=== PATIENT | male | born 1975 | race Hispanic/Latino ===

== ENCOUNTER 2016-10-26 11:47 | Emergency (ER) | payer OTHER ==
[2016-10-26 11:55] VITALS: BP 153/85; PULSE 73; RESP 18; TEMP 97.4; O2SAT 100
--- NOTE | 2016-10-26 12:19 | ED PDOC ---
HPI: Back Time Seen by Provider: 10/26/16 12:16 Chief Complaint (Nursing): Back Pain Chief Complaint (Provider): low back pain History Per: Patient History/Exam Limitations: no limitations Onset/Duration Of Symptoms: Days (3) Current Symptoms Are (Timing): Still Present Quality Of Discomfort: Pressure, "Pain" Previous Symptoms: None Associated Symptoms: None Additional Complaint(s): The patient is a 41 y/o male, presents to the ED for evaluation of left lower back pain, worsening for the past 3 days. The patient reports 5 days ago, when he sneezed, he felt his back get "tight"; reports he took 2 tablets of Advil with relief. The patient then states 3 days ago, his back pain worsened and describes it as pressure-like with numbness present in his left lower extremity. He reports taking 2 Advil this morning at 0700 with no relief. Patient denies any history of back pain, surgeries. He also denies any dysuria, incontinence, hematuria. Patient currently offers no additional medical complaints. Past Medical History Reviewed: Historical Data, Nursing Documentation, Vital Signs Vital Signs: Last Vital Signs Temp 97.4 F L 10/26/16 11:54 Pulse 73 10/26/16 11:54 Resp 18 10/26/16 11:54 BP 153/85 H 10/26/16 11:54 Pulse Ox 100 10/26/16 11:54 - Medical History PMH: No Chronic Diseases - Surgical History Surgical History: No Surg Hx - Family History Family History: States: No Known Family Hx - Living Arrangements Living Arrangements: With Family - Social History Current smoker - smoking cessation education provided: No Alcohol: None Drugs: Denies - Home Medications Home Medications: Ambulatory Orders Medication Instructions Recorded Cyclobenzaprine [Cyclobenzaprine 10 mg PO TID PRN #20 tab 10/26/16 HCl] Naproxen [Naprosyn] 500 mg PO BID #20 tab 10/26/16 - Allergies Allergies/Adverse Reactions: Allergies Allergy/AdvReac Type Severity Reaction Status Date / Time Penicillins AdvReac ANAPHYLAXIS Verified 10/26/16 12:12 Review of Systems ROS Statement: Except As Marked, All Systems Reviewed And Found Negative Constitutional: Negative for: Fever Cardiovascular: Negative for: Chest Pain Respiratory: Negative for: Cough, Shortness of Breath Genitourinary Male: Negative for: Dysuria, Incontinence, Hematuria Musculoskeletal: Positive for: Back Pain (x 5 days) Neurological: Negative for: Weakness, Numbness, Incoordination, Change in Speech , Altered Mental Status, Headache, Dizziness Physical Exam - Reviewed Nursing Documentation Reviewed: Yes Vital Signs Reviewed: Yes - Physical Exam Appears: Positive for: Well, Non-toxic, No Acute Distress Head Exam: Positive for: ATRAUMATIC, NORMAL INSPECTION, NORMOCEPHALIC Skin: Positive for: Normal Color Eye Exam: Positive for: Normal appearance Neck: Positive for: Normal, Painless ROM Respiratory: Negative for: Respiratory Distress Back: Positive for: Other (left lower lumbar tenderness, negative bilateral straight leg raise). Negative for: L CVA Tenderness, R CVA Tenderness Extremity: Positive for: Normal ROM. Negative for: Pedal Edema, Calf Tenderness Neurologic/Psych: Positive for: Alert, Oriented, Gait (steady) - Laboratory Results Urine dip results: Negative for: Leukocyte Esterase, Blood, Nitrate, Ketones, Glucose, Bilirubin, Protein - ECG O2 Sat by Pulse Oximetry: 100 (RA) Pulse Ox Interpretation: Normal - Other Rad L/S Spine X-ray X-Ray: Interpreted by Me, Viewed By Me X-Ray Interpretation: no fx, no dis, mild degenerative changes Medical Decision Making Medical Decision Making: Time: 1220 Impression: Left lower back pain; muscle spasm Plan: * Flexeril 10 mg PO * Tylenol 975 mg PO * XR lumbar spine * UDip * Reassess Patient is aware of all diagnostic testing results, all questions answered. Meds helped somewhat with pain. Will d/c with rx naprosyn and flexeril. 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 Scribe Attestation: Documented by Iliana Montero acting as a scribe for LION Henry Provider Attestation: All medical record entries made by the Scribe were at my direction and personally dictated by me. I have reviewed the chart and agree that the record accurately reflects my personal performance of the history, physical exam, medical decision making, and the department course for this patient. I have also personally directed, reviewed, and agree with the discharge instructions and disposition. Disposition - Clinical Impression Clinical Impression: Back pain - Patient ED Disposition Is Patient to be Admitted: No Counseled Patient/Family Regarding: Diagnosis, Need For Followup, Rx Given - Disposition Referrals: Chino Randall III, MD [Staff Provider] - Disposition: Routine/Home Disposition Time: 13:03 Condition: STABLE Additional Instructions: Take rx meds as directed as needed for pain. Follow up with primary care doctor or orthopedist for any persistent symptoms. Prescriptions: Cyclobenzaprine [Cyclobenzaprine HCl] 10 mg PO TID PRN #20 tab PRN Reason: Muscle Spasm Naproxen [Naprosyn] 500 mg PO BID #20 tab Instructions: Back Pain (ED) Forms: [facility] ED School/Work Excuse
--- NOTE | 2016-10-26 14:24 | RAD ---
PROCEDURE: Radiographs of the Lumbar Spine. HISTORY: left side low back pain COMPARISON: No prior. FINDINGS: BONES: Normal alignment. No listhesis. No fracture. DISC SPACES: Degenerative changes primarily disc space narrowing L3-4. Non marginal osteophytes at multiple levels. OTHER FINDINGS: None. IMPRESSION: No significant or acute findings to account for/ related to the clinical presentation. Additional benign and/or incidental findings described above. Concordant results with the preliminary interpretation rendered by the emergency department physician procedure.
== END 2016-10-26 13:59 | disposition home or self-care (01) ==
LOC: H.ER 11:47
DX: M54.5 Low back pain (principal); Z88.0 Allergy status to penicillin